=== PATIENT | female | born 1945 | race Caucasian/White ===

== ENCOUNTER → 2020-04-22 10:29 | Outpatient (CLI) | payer MEDICARE, SELFPAY ==
--- NOTE | ~2020-04-22 | MM_ITS ---
EXAMINATION: MM screening ortiz BI w sandra HISTORY: Screening mammogram TECHNIQUE: Craniocaudal and mediolateral oblique 3-D tomosynthesis images were obtained and synthetic 2-D images were generated. CAD analysis was submitted and interpreted. COMPARISON: 04/04/2018, 03/30/2017, 12/12/2015 bilateral digital screening mammogram examinations BREAST PARENCHYMAL COMPOSITION: There are scattered areas of fibroglandular density. FINDINGS: Bilateral calcifications including arterial. There is no evidence of suspicious mass, calci fication, or architectural distortion to suggest malignancy in either breast. There has been no suspi cious interval change. IMPRESSION: 1. No mammographic evidence of malignancy. 2. Recommend routine screening mammography in one year. BI-RADS Category 2: Benign finding(s). Reviewed, dictated and finalized at location A. 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
== END ==
PROVIDERS: PCP Family Medicine Adolescent Medicine; Visit Provider Family Medicine Adolescent Medicine
DX: Z12.31 Encounter for screening mammogram for malignant neoplasm of breast (principal)
CPT/HCPCS: 77063; 77067

== ENCOUNTER 2021-01-03 11:05 | Emergency (ER) | payer MEDICARE, SELFPAY ==
--- NOTE | ~2021-01-03 | XR_ITS ---
EXAMINATION: XR shoulder LT min 2V INDICATION: Severe left shoulder pain TECHNIQUE: Four views of the left shoulder are submitted. COMPARISON: 05/19/2018 FINDINGS: Normal alignment. No fracture. There is mild osteoarthritis of the acromioclavicular and gl enohumeral joints. Soft tissues are unremarkable. IMPRESSION: 1. Mild osteoarthritis. Reviewed, dictated and finalized at location A. IMPRESSION: 1. Mild osteoarthritis.
--- NOTE | ~2021-01-03 | XR_ITS ---
EXAMINATION: XR chest 2V DATE: 01/03/2021 11:52 INDICATION: Pain and weight loss TECHNIQUE: AP and lateral views of the chest are obtained. COMPARISON: 05/01/2017 FINDINGS: The lungs are free of acute opacities. There is no pleural effusion or pneumothorax. The ca rdiomediastinal silhouette is normal. There is moderate thoracic spondylosis. IMPRESSION: 1. No acute cardiopulmonary abnormality. Reviewed, dictated and finalized at location A.
[2021-01-03 11:14] VITALS: BP 101/89; PULSE 58; RESP 18; TEMP 36.6; O2SAT 97
--- NOTE | 2021-01-03 11:28 | ED.GENADULT ---
HPI - General Adult General Chief complaint: Extremity Injury, Upper <Imelda Villalta PA-C - Last Filed: 01/03/21 15:16> Stated complaint: having alot of pain, vomiting <Imelda Villalta PA-C - Last Filed: 01/03/21 15:16> Time Seen by Provider: 01/03/21 11:28 <Imelda Villalta PA-C - Last Filed: 01/03/21 15:16> Source: patient and family () <Imelda Villalta PA-C - Last Filed: 01/03/21 15:16> Mode of arrival: ambulatory <ARIELLA Koch Last Filed: 01/03/21 15:16> Limitations: no limitations <Imelda Villalta PA-C - Last Filed: 01/03/21 15:16> History of Present Illness HPI narrative: Patient is here for evaluation of left shoulder pain radiates down her left posterior ribs. She has had the pain for at least 2 months. Denies any history of trauma. She received a cortisone shot in her left shoulder on and states that the pain seems to be worse now, to the point that she vomits from the pain. She denies any shortness of breath except when the pain is really bad. She does have a history of diabetes and asthma. She also reports a 20 pound weight loss in the last 5 to 6 months. <Imelda Villalta PA-C - Last Filed: 01/03/21 15:16> Onset (ago): week(s) <Imelda Villalta PA-C - Last Filed: 01/03/21 15:16> Severity scale (1-10): 9 <ARIELLA Koch Last Filed: 01/03/21 15:16> Quality: stabbing <ARIELLA Koch Last Filed: 01/03/21 15:16> Associated symptoms: nausea/vomiting and shortness of breath <ARIELLA Koch Last Filed: 01/03/21 15:16> Treatments prior to arrival: NSAID <Imelda Villalta PA-C - Last Filed: 01/03/21 15:16> Related Data Allergies/adverse reactions: Allergies Allergy/AdvReac Type Severity Reaction Status Date / Time Quinolones Allergy Mild Hives Verified 01/03/21 11:22 levofloxacin Allergy Unknown Hives Verified 01/03/21 11:22 ofloxacin Allergy Unknown HIVES Verified 01/03/21 11:22 NSAIDS (Non-Steroidal AdvReac Unknown Gastrointestinal Verified 01/03/21 11:22 Anti-Inflamma Upset ANTI INFLAMMATORYS AdvReac Unknown HEART BURN Uncoded 01/03/21 11:22 <Imelda Villalta PA-C - Last Filed: 01/03/21 15:16> Review of Systems Review of Systems: All systems reviewed & are unremarkable except as noted in HPI and below <Imelda Villalta PA-C - Last Filed: 01/03/21 15:16> [facility] Family History Family History: Family History Sibling Hypertension Family history of malignant neoplasm of cervix Family history of malignant neoplasm of uterus Family history of throat cancer Father Hypertension Cerebrovascular accident Mother Hypertension Grandparent Family history of Alzheimer's disease Family history of pancreatic cancer <Imelda Villalta PA-C - Last Filed: 01/03/21 15:16> Social History Social History: Social History (Updated 01/03/21 @ 11:44 by Imelda Villalta PA-C) Smoking status: Never smoker Alcohol intake: never Substance use: never Living arrangements: with family <Imelda Villalta PA-C - Last Filed: 01/03/21 15:16> Exam Const: General: no acute distress and alert <Imelda Villalta PA-C - Last Filed: 01/03/21 15:16> Nutritional Appearance: thin <Imelda Villalta PA-C - Last Filed: 01/03/21 15:16> Orientation/consciousness: patient oriented x3 <Imelda Villalta PA-C - Last Filed: 01/03/21 15:16> HENMT: Head: normal to inspection <Imelda Villalta PA-C - Last Filed: 01/03/21 15:16> Eyes: Pupils: Equal, round and reactive pupils present <Imelda Villalta PA-C - Last Filed: 01/03/21 15:16> Neck: Neck: no lymphadenopathy <Imelda Villalta PA-C - Last Filed: 01/03/21 15:16> Resp: Effort & Inspection: normal respiratory effort <ARIELLA Koch Last Filed: 01/03/21 15:16> Auscultation: wheezes inspiratory wheezes and lower bilaterally <ARIELLA Koch Last Filed:
[2021-01-03] MEDS: SODIUM CHLORIDE 0.9% IV 1,000 ML 999 ML IV CONT (13:01)
[2021-01-03] MEDS: KETOROLAC 30 MG/ML VIAL (*BKC) IV PUSH (13:01)
[2021-01-03] MEDS: CYCLOBENZAPRINE HCL 10 MG TABLET PO (14:10)
--- NOTE | 2021-01-03 15:05 | PC.NURSE ---
Request to PO challenge patient per BREAKFAST HOSTESS. Pt tolerated 4 crackers and water with flexeril earlier in the day. BREAKFAST HOSTESS aware. Pt reports improvement in pain since flexeril, states pain is tolerable at this time.
[2021-01-03 15:43] VITALS: BP 108/74; PULSE 71; RESP 18; TEMP 36.8; O2SAT 95
== END 2021-01-03 15:45 | disposition home or self-care (01) ==
PROVIDERS: Emergency Provider General Practice; PCP Family Medicine Adolescent Medicine
DX: M25.512 Pain in left shoulder (principal)
CPT/HCPCS: 71046; 73030; 96361; 96374; 99284; A9270; J1885; J7030

== ENCOUNTER 2021-01-13 09:35 | Outpatient (CLI) | payer MEDICARE, SELFPAY ==
--- NOTE | ~2021-01-13 | MR_ITS ---
EXAMINATION: MR cervical spine wo con EXAM DATE: 01/13/2021 10:42 INDICATION: Cervical radiculopathy. TECHNIQUE: Multi-sequential, multiplanar MR images of the cervical spine were obtained without contra st. Axial T2, axial T2 MERGE sequence. Sagittal T1, T2, T2 fat saturation images also obtained. Th ere is no prior study for comparison. FINDINGS: There is moderate loss of the C4-5 and 5-6 disc height, mild to moderate at C6-7. The spin al cord signal intensity and intrinsic morphology is normal. Cervicomedullary junction is normal in a ppearance. There are no suspicious marrow signal abnormalities. Paraspinal soft tissue is unremarkabl e. The vertebral bodies are aligned in the AP dimension. Level by level evaluation: Study is limited due to patient motion. C2-C3: Disc does not extend beyond the endplate margin. Uncovertebral joint arthropathy: None. Facet joint arthropathy: Mild to moderate bilateral. Neural foraminal stenosis: No stenosis. Central canal stenosis: No stenosis. C3-C4: Disc does not extend beyond the endplate margin. Uncovertebral joint arthropathy: Mild bilateral. Facet joint arthropathy: Moderate bilateral. Neural foraminal stenosis: No stenosis. Central canal stenosis: No stenosis. C4-C5: There is a mild diffuse disc bulge. Uncovertebral joint arthropathy: Moderate to severe right, moderate left. Facet joint arthropathy: Moderate to severe right, moderate left. Neural foraminal stenosis: Moderate right, mild to moderate left. Central canal stenosis: Mild. C5-C6: There is a minimal diffuse disc bulge. Uncovertebral joint arthropathy: Moderate to severe bilateral. Facet joint arthropathy: Moderate bilateral. Neural foraminal stenosis: Moderate left, mild to moderate right. Central canal stenosis: No stenosis. C6-C7: There is a mild diffuse disc bulge. Uncovertebral joint arthropathy: Moderate bilateral. Facet joint arthropathy: Mild to moderate bilateral. Neural foraminal stenosis: Mild bilateral. Central canal stenosis: Mild. C7-T1: Disc does not extend beyond the endplate margin. Uncovertebral joint arthropathy: Mild bilateral. Facet joint arthropathy: Mild bilateral. Neural foraminal stenosis: No stenosis. Central canal stenosis: No stenosis. IMPRESSION: Significant mid cervical arthropathy causing stenosis as above. Reviewed, dictated and finalized at location A.
== END 2021-01-13 09:36 | disposition home or self-care (01) ==
PROVIDERS: PCP Family Medicine Adolescent Medicine; Visit Provider Family Medicine Adolescent Medicine
DX: M54.12 Radiculopathy, cervical region (principal)
CPT/HCPCS: 72141

== ENCOUNTER → 2021-09-11 12:03 | Outpatient (CLI) | payer MEDICARE, SELFPAY ==
--- NOTE | ~2021-09-11 | XR_ITS ---
XR chest 2V DATE: 09/11/2021 12:25 INDICATION: Cough TECHNIQUE: 2 views COMPARISON: 01/03/2021 2 view chest FINDINGS: There is lingular infiltrate and/atelectasis. The remaining lungs appear clear. Prominent bilateral hyperinflation and relative flattening the diaphragm and increased retrosternal a irspace, consistent with COPD. Ill-defined approximately 9 mm opacity overlies the lateral right mid to upper lung. CT thorax is rec ommended to exclude pulmonary mass lesion. Normal heart size. Aortic arch calcification. No hilar or mediastinal enlargement. There is old pulmonary granulomatous disease. Osteopenia. Minimal dextroscoliosis of the thoracic spine. IMPRESSION: Lingular infiltrate and/or atelectasis; continued radiographic follow-up is recommended t o ensure complete clearing in order to exclude any possible mass or endobronchial obstructing lesion 9 mm density overlying right upper lobe; CT thorax is recommended to exclude pulmonary mass lesion. COPD Aortic atherosclerosis Osteopenia Reviewed, dictated and finalized at location A. IMPRESSION: Lingular infiltrate and/or atelectasis; continued radiographic foll ow-up is recommended to ensure complete clearing in order to exclude any possib le mass or endobronchial obstructing lesion 9 mm density overlying right upper lobe; CT thorax is recommended to exclude pu lmonary mass lesion. COPD Aortic atherosclerosis Osteopenia
== END ==
PROVIDERS: PCP Physician Assistant; Visit Provider Physician Assistant
DX: R05.9 Cough, unspecified (principal); J44.9 Chronic obstructive pulmonary disease, unspecified; I70.0 Atherosclerosis of aorta; M85.88 Other specified disorders of bone density and structure, other site
CPT/HCPCS: 71046

== ENCOUNTER → 2021-09-22 09:07 | Outpatient (CLI) | payer MEDICARE, SELFPAY ==
--- NOTE | ~2021-09-22 | CT_ITS ---
EXAMINATION:CT diagnostic chest wo con DATE: 09/22/2021 09:30 INDICATION: Cough. Chest pain. Shortness of breath. TECHNIQUE: Computed tomography (CT) of the chest was performed without intravenous contrast. Automate d exposure control and iterative reconstruction technique were employed. The dose-length product (DLP ) was 138.84 mGy-cm. COMPARISON: Chest CT 05/07/2014, 01/03/14 FINDINGS: There is mild scarring at the lung apices. Calcified pulmonary nodules and calcified hilar and mediastinal lymph nodes are consistent with old granulomatous disease. There are scattered centri lobular and tree-in-bud opacities and small airspace opacities involving all lobes. There is bronchie ctasis in lingula. No pleural effusion. The heart size is normal. No pericardial effusion. Calcificat ions in the liver and spleen are consistent with old granulomatous disease. There is mild thoracic sp ondylosis. There is a chronic compression fracture of T8. IMPRESSION: 1. 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 Reviewed, dictated and finalized at location A. IMPRESSION: 1. 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
== END ==
PROVIDERS: PCP Family Medicine Adolescent Medicine; Visit Provider Physician Assistant
DX: R05.9 Cough, unspecified (principal); J98.4 Other disorders of lung
CPT/HCPCS: 71250

== ENCOUNTER → 2021-11-17 14:20 | Outpatient (CLI) | payer MEDICARE, SELFPAY ==
--- NOTE | ~2021-11-17 | MR_ITS ---
EXAMINATION: MR lumbar spine wo con DATE: 11/17/2021 14:50 INDICATION: Low back pain. Left-sided sciatica. TECHNIQUE: Magnetic resonance imaging (MRI) of the lumbar spine was performed without intravenous con trast. Sequences included sagittal T2-weighted FSE, sagittal T2-weighted FS FSE, sagittal T1-weighted FSE, and axial T2-weighted FSE. COMPARISON: None FINDINGS: There is 5 degrees levocurvature of thoracolumbar spine. Vertebral body heights are normal. There is mildly decreased disc height at L3-L4 and severely decreased disc height at L4-L5 and L5-S1 with endplate remodeling. The distal spinal cord signal intensity is normal. The conus medullaris is at L1. The following disc levels are specifically discussed: L1-L2: The disc does not extend beyond the endplate margin. There is mild bilateral facet joint osteo arthritis. There is no neural foraminal stenosis. There is no central canal stenosis. L2-L3: The disc does not extend beyond the endplate margin. There is severe bilateral facet joint ost eoarthritis. There is no neural foraminal stenosis. There is no central canal stenosis. L3-L4: The disc is bulging and has an annular fissure. There is moderate bilateral facet joint osteoa rthritis. There is mild bilateral neural foraminal stenosis. There is mild central canal stenosis. L4-L5: The disc is bulging and has an annular fissure. There is moderate right and mild left facet jt int osteoarthritis. There is mild right and moderate left neural foraminal stenosis. There is mild ce ntral canal stenosis. L5-S1: The disc is bulging and has an annular fissure. There is severe right and moderate left facet joint osteoarthritis. There is moderate bilateral neural foraminal stenosis. There is mild central ca nal stenosis. IMPRESSION: 1. Severe lower lumbar spondylosis. Reviewed, dictated and finalized at location A.
== END ==
PROVIDERS: PCP Family Medicine Adolescent Medicine; Visit Provider Physician Assistant
DX: M54.42 Lumbago with sciatica, left side (principal); M47.896 Other spondylosis, lumbar region
CPT/HCPCS: 72148

== ENCOUNTER 2021-12-07 08:13 | Emergency (ER) | payer MEDICARE, SELFPAY ==
--- NOTE | 2021-12-07 08:15 | ED.SKABFB ---
HPI - Skin/Abscess/Foreign Bdy General Chief complaint: Skin/Abscess/Foreign Body Stated complaint: Insect Bite Right Inner Thigh Time Seen by Provider: 12/07/21 08:35 Source: patient and RN notes reviewed Mode of arrival: ambulatory Limitations: no limitations History of Present Illness HPI narrative: 76-year-old female presents with concern for insect bite to her right thigh. She reports on Tuesday night she was bit or stung by something it was painful. She reports she had a red area. She reports she applied Benadryl cream. She reports since then the area has become more red, warm, hard, tender and burning. She denies itching. She denies fullness, swollen tongue, trouble breathing. MD complaint: insect bite/sting Related Data Home Medications Medication Instructions Recorded Confirmed fluticasone propionate 50 1 spray intranasal DAILY 04/13/21 12/07/21 mcg/actuation nasal spray,suspension (Flonase Allergy Relief) albuterol sulfate 90 mcg/actuation 2 puff inhalation Q4-5H PRN 12/07/21 12/07/21 aerosol inhaler difficulty breathing gabapentin 100 mg capsule 100 mg PO DAILY 12/07/21 12/07/21 loratadine 10 mg tablet (Claritin) 10 mg PO DAILY 12/07/21 12/07/21 metformin 500 mg tablet 500 mg PO DAILY PRN high BS 12/07/21 12/07/21 montelukast 10 mg tablet 10 mg PO DAILY 12/07/21 12/07/21 Allergies Allergy/AdvReac Type Severity Reaction Status Date / Time Quinolones Allergy Mild Hives Verified 12/07/21 08:20 levofloxacin Allergy Unknown Hives Verified 12/07/21 08:20 ofloxacin Allergy Unknown HIVES Verified 12/07/21 08:20 cyclobenzaprine AdvReac Intermediate Nausea, Verified 12/07/21 08:20 vomiting NSAIDS (Non-Steroidal AdvReac Unknown Gastrointestinal Verified 12/07/21 08:20 Anti-Inflamma Upset Review of Systems Review of Systems: CONSTITUTIONAL: Denies malaise, chills, sweats, or fever. EYES: Denies redness, or discharge. ENT: Denies rhinorrhea, congestion, swollen lips, swollen tongue CARDIOVASCULAR: Denies chest pain, palpitations, or edema. RESPIRATORY: Denies cough or dyspnea. GASTROINTESTINAL: Denies abdominal pain, nausea, vomiting SKIN: Reports warm red tender area on her right thigh MUSCULOSKELETAL: Denies joint pain or myalgia. NEUROLOGIC: Denies headache. All systems reviewed & are unremarkable except as noted in HPI and below PMFSH Surgical History Surgical History History of hysterectomy Vaginal, 1973 Family History Family History Sibling Hypertension Family history of malignant neoplasm of cervix Family history of malignant neoplasm of uterus Family history of throat cancer Ovarian cancer Father Hypertension Cerebrovascular accident Acute myocardial infarction Mother Hypertension Osteoporosis Grandparent Family history of Alzheimer's disease Family history of pancreatic cancer Social History Social History Smoking status: Never smoker Second hand tobacco smoke exposure: No Alcohol intake: never Substance use: never Substance use type: does not use Gender identity (if verbalized by the patient): Female Sexual Orientation (if Verbalized by the Patient): Straight or Heterosexual Spiritual care concerns: No Agree to blood products: Yes Comments At time of signature, agree with nursing past medical, surgical, social and family history. There is no relevant family history pertinent to the presenting complaint Exam Narrative: GENERAL: Well-appearing, well-nourished, and in no acute distress. HEAD: Normocephalic, atraumatic. EYES: PERRLA, conjunctivae clear ENT: Mucous membranes moist. NECK: Supple. No lymphadenopathy CHEST: Clear to auscultation. No respiratory distress. HEART: Regular rate and rhythm. SKIN: Warm, dry. Approximately 10 cm area in diameter of erythema, warmth, ind
[2021-12-07 08:23] VITALS: BP 129/79; PULSE 100; RESP 18; TEMP 36.7; O2SAT 100
== END 2021-12-07 08:50 | disposition home or self-care (01) ==
PROVIDERS: Emergency Provider Nurse Practitioner; PCP Family Medicine Adolescent Medicine
DX: L03.115 Cellulitis of right lower limb (principal)
CPT/HCPCS: 99213; G0463

== ENCOUNTER 2022-03-01 10:36 | Outpatient (CLI) | payer MEDICARE, SELFPAY ==
--- NOTE | 2022-03-01 12:40 | WPDNEUROLOGY ---
Neurology EEG Report General Information Date of Study: 03/01/22 TEST Routine EEG DIAGNOSIS Unspecified convulsions CONDITION OF RECORDING Awake, drowsy EEG NUMBER [id number] CLINICAL HISTORY Patients states about two weeks ago she had surgery and while coming out of anesthesia, she had a seizure. She has no prior history of seizures. EEG DESCRIPTION During the awake state with eyes closed the background consists of 8 Hz posterior dominant rhythm which attenuates appropriately with eye opening. The recording is continuous. There is a well developed anterior-posterior gradient. No significant asymmetries of background activities are noted. With drowsiness there is was waxing and waning of the dominant rhythm with eventual replacement by a mixture of beta, alpha, and theta activity. Patient did not enter stage II sleep. There are no epileptiform discharges or seizures during this recording. Photic stimulation did not elicit any abnormal photoparoxysmal response. IMPRESSION This is a normal routine EEG recorded in awake and drowsy states. There are no electrographic seizures identified, nor are there any epileptiform discharges. Please note that a normal EEG cannot exclude a seizure disorder. Clinical correlation is recommended.
== END 2022-03-01 10:37 | disposition home or self-care (01) ==
PROVIDERS: PCP Family Medicine Adolescent Medicine; Visit Provider Family Medicine Adolescent Medicine
DX: R56.9 Unspecified convulsions (principal)
CPT/HCPCS: 95816

== ENCOUNTER 2022-04-21 08:17 | Emergency (ER) | payer MEDICARE, SELFPAY ==
--- NOTE | ~2022-04-21 | XR_ITS ---
EXAMINATION: XR chest 2V DATE: 04/21/2022 08:47 INDICATION: Productive cough and wheezing TECHNIQUE: PA and lateral views of the chest are obtained. COMPARISON: 09/11/2021 FINDINGS: The lungs are free of acute opacities. No pleural effusion or pneumothorax. The cardiomedia stinal silhouette is normal. There is mild thoracic spondylosis. IMPRESSION: 1. No acute cardiopulmonary abnormality. Reviewed, dictated and finalized at location B. 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
--- NOTE | 2022-04-21 08:20 | ED.URI ---
HPI - URI/Sore Throat General Chief Complaint: Upper Respiratory Infection Stated Complaint: cold sx Time Seen by Provider: 04/21/22 08:20 Source: patient Mode of arrival: ambulatory Limitations: no limitations History of Present Illness HPI Narrative: Jamee is a 76-year-old female patient presenting to clinic today with complaints of runny nose, productive cough-green/yellow phlegm, chills, and increased shortness of breath x2 days. She reports has a history of asthma and often her asthma will flare with an upper respiratory infection. Medical history is positive for asthma-moderate/persistent, pulmonary nodules, and emphysema. Has had pneumonia 7 times in her adult life. Has been using her inhalers/ routine medications without much relief. MD elicited complaint: sore throat and nasal congestion Related Data Home Medications Medication Instructions Recorded Confirmed fluticasone propionate 50 1 spray intranasal DAILY 04/13/21 04/21/22 mcg/actuation nasal spray,suspension (Flonase Allergy Relief) albuterol sulfate 90 mcg/actuation 2 puff inhalation Q4-5H PRN 12/07/21 04/21/22 aerosol inhaler difficulty breathing loratadine 10 mg tablet (Claritin) 10 mg PO DAILY 12/07/21 04/21/22 metformin 500 mg tablet 500 mg PO DAILY PRN high BS 12/07/21 04/21/22 montelukast 10 mg tablet 10 mg PO DAILY 12/07/21 04/21/22 acetaminophen 325 mg tablet 325 mg PO Q6H 02/24/22 04/21/22 (Tylenol) ascorbic acid (vitamin C) 500 mg 250 mg PO DAILY 02/24/22 04/21/22 tablet aspirin 81 mg tablet,delayed 81 mg PO DAILY 02/24/22 04/21/22 release (Adult Aspirin Regimen) atorvastatin 20 mg tablet 20 mg PO DAILY 02/24/22 04/21/22 cholecalciferol (vitamin D3) 50 50 mcg PO DAILY 02/24/22 04/21/22 mcg (2,000 unit) capsule meclizine 25 mg tablet (Dramamine 25 mg PO QID 02/24/22 04/21/22 (meclizine)) multivitamin-ferrous 1 tablet PO DAILY 02/24/22 04/21/22 fumarate-folic acid 18 mg-400 mcg tablet (Centrum Women) pimecrolimus 1 % topical cream 1 applic topical BID 02/24/22 02 Allergies Allergy/AdvReac Type Severity Reaction Status Date / Time Quinolones Allergy Mild Hives Verified 04/21/22 08:23 levofloxacin Allergy Unknown Hives Verified 04/21/22 08:23 ofloxacin Allergy Unknown HIVES Verified 04/21/22 08:23 cyclobenzaprine AdvReac Intermediate Nausea, Verified 04/21/22 08:23 vomiting NSAIDS (Non-Steroidal AdvReac Unknown Gastrointestinal Verified 04/21/22 08:23 Anti-Inflamma Upset Review of Systems Review of Systems: Pertinent positives per HPI. Patient denies any fever, chills, rash, headache, visual changes, dizziness, chest pain, palpitations, nausea, vomiting, diarrhea, constipation, abdominal pain, or any urinary issues. [facility] Surgical History Surgical History History of hysterectomy Vaginal, 1973 Family History Family History Sibling Hypertension Family history of malignant neoplasm of cervix Family history of malignant neoplasm of uterus Family history of throat cancer Ovarian cancer Father Hypertension Cerebrovascular accident Acute myocardial infarction Mother Hypertension Osteoporosis Grandparent Family history of Alzheimer's disease Family history of pancreatic cancer Social History Social History Smoking status: Never smoker Second hand tobacco smoke exposure: No Alcohol intake: never Substance use: never Substance use type: does not use Living arrangements: with family Occupation/Education: retired Gender identity (if verbalized by the patient): Female Sexual Orientation (if Verbalized by the Patient): Straight or Heterosexual Spiritual care concerns: No Agree to blood products: Yes Comments At the time of my signature, I reviewed and agree with the nursing past med
[2022-04-21 08:23] VITALS: BP 129/71; PULSE 103; RESP 16; TEMP 36.3; O2SAT 97
== END 2022-04-21 09:07 | disposition home or self-care (01) ==
PROVIDERS: Emergency Provider Nurse Practitioner Family; PCP Family Medicine Adolescent Medicine
DX: J06.9 Acute upper respiratory infection, unspecified (principal); J45.41 Moderate persistent asthma with (acute) exacerbation; N18.31 Chronic kidney disease, stage 3a; E11.22 Type 2 diabetes mellitus with diabetic chronic kidney disease; Z79.4 Long term (current) use of insulin; Z79.82 Long term (current) use of aspirin; Z20.822 Contact with and (suspected) exposure to COVID-19
CPT/HCPCS: 71046; 87426; 87804; 99213; C9803; G0463

== ENCOUNTER 2022-06-24 14:13 | Emergency (ER) | payer MEDICARE, SELFPAY ==
--- NOTE | ~2022-06-24 | XR_ITS ---
XR chest 2V 06/24/2022 14:46 Indication: Cough and wheezing Procedure: 2 view chest Comparison: Comparison to multiple prior studies sequentially, with oldest reviewed study dated 2017 Findings: There is a 1.3 cm right upper lobe nodule. Heart size normal. There are calcified granuloma s in the mid and lower lungs. No focal pneumonia, edema, pleural effusion or pneumothorax. Impression: 1: No acute cardiopulmonary disease. 2: Right upper lobe nodule measuring 1.3 cm. Follow-up CT chest recommended to exclude parenchymal no dule. Reviewed, dictated and finalized at location L. Impression: 1: No acute cardiopulmonary disease. 2: Right upper lobe nodule measuring 1.3 cm. Follow-up CT chest recommended to exclude parenchymal nodule.
[2022-06-24 14:27] VITALS: BP 131/52; PULSE 62; RESP 24; TEMP 39.2; O2SAT 93
--- NOTE | 2022-06-24 14:37 | ED.SOB ---
HPI - SOB/Dyspnea General Chief Complaint: Chest Pain Stated Complaint: cough Time Seen by Provider: 06/24/22 14:25 Source: patient Mode of arrival: ambulatory Limitations: no limitations History of Present Illness HPI Narrative: Patient is a 76-year-old female that presents with increased sinus congestion, cough, left rib pain for 3 days. Has a history of COPD, asthma, lung nodules. 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 Called pulmonology today and they were unable to see her. 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 Per patient she has CTs scheduled for October. patient febrile but has not taken anything for fever. Per patient was afebrile this morning. patient denies using rescue inhaler for symptoms. Reports productive cough in the mornings and non productive cough the rest of the day. Related Data Home Medications Medication Instructions Recorded Confirmed fluticasone propionate 50 1 spray intranasal DAILY 04/13/21 05/31/22 mcg/actuation nasal spray,suspension (Flonase Allergy Relief) albuterol sulfate 90 mcg/actuation 2 puff inhalation Q4-5H PRN 12/07/21 05/31/22 aerosol inhaler difficulty breathing loratadine 10 mg tablet (Claritin) 10 mg PO DAILY 12/07/21 05/31/22 montelukast 10 mg tablet 10 mg PO DAILY 12/07/21 05/31/22 acetaminophen 325 mg tablet 325 mg PO Q6H 02/24/22 05/31/22 (Tylenol) ascorbic acid (vitamin C) 500 mg 250 mg PO DAILY 02/24/22 05/31/22 tablet aspirin 81 mg tablet,delayed 81 mg PO DAILY 02/24/22 05/31/22 release (Adult Aspirin Regimen) atorvastatin 20 mg tablet 20 mg PO DAILY 02/24/22 05/31/22 cholecalciferol (vitamin D3) 50 50 mcg PO DAILY 02/24/22 05/31/22 mcg (2,000 unit) capsule meclizine 25 mg tablet (Dramamine 25 mg PO QID 02/24/22 05/31/22 (meclizine)) multivitamin-ferrous 1 tablet PO DAILY 02/24/22 05/31/22 fumarate-folic acid 18 mg-400 mcg tablet (Centrum Women) pimecrolimus 1 % topical cream 1 applic topical BID 02/24/22 05/31/22 Allergies Allergy/AdvReac Type Severity Reaction Status Date / Time Quinolones Allergy Mild Hives Verified 05/31/22 09:35 levofloxacin Allergy Unknown Hives Verified 05/31/22 09:35 ofloxacin Allergy Unknown HIVES Verified 05/31/22 09:35 cyclobenzaprine AdvReac Intermediate Nausea, Verified 05/31/22 09:35 vomiting NSAIDS (Non-Steroidal AdvReac Unknown Gastrointestinal Verified 05/31/22 09:35 Anti-Inflamma Upset tramadol AdvReac Mild Dizziness Uncoded 05/31/22 09:35 Review of Systems Review of Systems: All systems reviewed & are unremarkable except as noted in HPI and below Constitutional: Constitutional: Denies body ache(s), Reports fever(s), Denies headache(s), Denies malaise and Denies weakness Eyes: Eyes: Denies loss of vision ENT: Denies otalgia, Denies headache(s), Reports nasal congestion, Reports nasal discharge, Denies sinus pain and Denies sore throat Cardiovascular: Cardiovascular: Denies chest pain, Denies irregular heart rhythm and Denies dyspnea Respiratory: Respiratory: Reports cough, Reports pain on inspiration, Reports pain with cough and Denies dyspnea Gastrointestinal: Gastrointestinal: Denies abdominal pain, Denies melena, Denies hematochezia, Denies diarrhea, Denies nausea and Denies vomiting Musculoskeletal: Musculoskeletal: Denies back pain, Denies myalgias and Denies arthralgias Integumentary/Breasts: Skin/Breast: Denies pruritus and Denies rash Neurologic: Denies headache(s), Denies loss of vision and Denies weakness Psychiatric: Psychiatric: Reports no additional psychiatric complaints [facility] Surgical History Surgical History History of hysterectomy Vaginal, 1972 Family History Family History Sibling Hypertension Family history of malignant neoplasm of cervix Family history of malignant neoplasm of uterus Family history o
[2022-06-24 15:02] VITALS: TEMP 39.2
[2022-06-24] MEDS: ACETAMINOPHEN 500 MG TABLET 1000 MG PO (15:02)
[2022-06-24 16:11] VITALS: PULSE 65; RESP 18; TEMP 37.8; O2SAT 93
--- NOTE | 2022-06-24 16:12 | PC.NURSE ---
Provider spoke with pulmonary office. Pt and instructed to go to ED if not improving tonight or tomorrow.
== END 2022-06-24 16:20 | disposition home or self-care (01) ==
PROVIDERS: Emergency Provider Nurse Practitioner Family; PCP Family Medicine Adolescent Medicine
DX: J32.9 Chronic sinusitis, unspecified (principal); Z20.822 Contact with and (suspected) exposure to COVID-19; Z79.82 Long term (current) use of aspirin
CPT/HCPCS: 71046; 87426; 87804; 99213; A9270; C9803; G0463

== ENCOUNTER 2022-07-12 07:39 | Outpatient (CLI) | payer MEDICARE, SELFPAY ==
--- NOTE | ~2022-07-12 | CT_ITS ---
EXAMINATION: CT sinus wo con DATE: 07/12/2022 07:59 INDICATION: Chronic sinusitis. TECHNIQUE: Computed tomography (CT) of the paranasal sinuses was performed without intravenous contra st. Iterative reconstruction technique was employed. The dose-length product was 295.03 mGy-cm. COMPARISON: Head CT 05/01/2017 FINDINGS: The frontal sinuses are clear. There is mild mucosal thickening in the ethmoid and maxillar y sinuses. The sphenoid sinuses are clear. There is leftward deviation of the nasal septum. There is jean paul bullosa involving the bilateral middle turbinates. The ostiomeatal units are patent. There are likely changes of ocular lens replacement surgeries. There is hyperdense material in the left ocular globe, which is likely surgical change. IMPRESSION: 1. Mild mucosal thickening in the paranasal sinuses. 2. Leftward deviation of the nasal septum. Reviewed, dictated and finalized at location A.
== END 2022-07-12 07:40 | disposition home or self-care (01) ==
PROVIDERS: PCP Family Medicine Adolescent Medicine; Visit Provider Otolaryngology
DX: J32.9 Chronic sinusitis, unspecified (principal); J34.2 Deviated nasal septum
CPT/HCPCS: 70486

== ENCOUNTER → 2022-09-07 11:23 | Outpatient (CLI) | payer MEDICARE, SELFPAY ==
--- NOTE | ~2022-09-07 | CT_ITS ---
Non-contrast CT scan of the Abdomen and Pelvis Clinical indication: Abdominal pain Technique: 2.5 mm axial scans were obtained through the abdomen and pelvis without intravenous or or al contrast. Dose reduction technique was used on this scan by utilizing automated exposure control a nd iterative reconstruction technique. The dose-length product (DLP) was 179.66 mGy-cm. Findings: Images through the lung bases reveal patchy consolidation involving the lingula, right mid dle lobe, right lower lobe, and medial left lung base.. There is no evidence of renal or ureteral calculi. The kidneys and the ureters are nondilated. Calcified splenic and hepatic granulomas are present. The pancreas, gallbladder, and adrenals appear normal. There is no aortic aneurysm. There is no evidence of bowel obstruction. There are multiple punctate scattered very high attenuatio n radiodensities in the large bowel. Images through the pelvis were performed. There is no evidence of ascites or lymphadenopathy. Urinary bladder unremarkable. No pelvic mass identified. No ascites. Impression: Patchy bibasilar consolidation, as detailed above, suspicious for pneumonia, most prominent at the me dial left lower lobe. Multiple scattered punctate very high attenuation radiodensities in the large bowel. Correlate for pi ca or other atypical or foreign body ingestion. Reviewed, dictated and finalized at location . Impression: Patchy bibasilar consolidation, as detailed above, suspicious for pneumonia, mo st prominent at the medial left lower lobe. Multiple scattered punctate very high attenuation radiodensities in the large b owel. Correlate for pica or other atypical or foreign body ingestion.
== END ==
PROVIDERS: PCP Family Medicine Adolescent Medicine; Visit Provider Nurse Practitioner Family
DX: R10.9 Unspecified abdominal pain (principal); R31.9 Hematuria, unspecified; R91.8 Other nonspecific abnormal finding of lung field
CPT/HCPCS: 74176

== ENCOUNTER → 2023-02-25 12:23 | Outpatient (CLI) | payer MEDICARE, SELFPAY ==
--- NOTE | ~2023-02-25 | DEXA_ITS ---
Bone Density Report Name: DEXTER JORDAN Age: 77 Sex: Female Ethnicity: White Date of : 1945 Indication: osteopenia; parental hip fracture; height loss; asthma or emphysema; hysterectomy; postmenopausal Referring Provider: YEN RIVAS Study: Bone densitometry was performed. Exam Date: February 25, 2023 Accession number: [id number] Bone Density: Region BMD T-score Z-score Classification AP Spine (L1-L4) 0.800 -2.2 0.4 Osteopenia Femoral Neck (Left) 0.503 -3.1 -0.8 Osteoporosis Total Hip (Left) 0.690 -2.1 0.0 Osteopenia Femoral Neck (Right) 0.513 -3.0 -0.7 Osteoporosis Total Hip (Right) 0.776 -1.4 0.7 Osteopenia Total Hip Mean 0.733 -1.8 0.4 Osteopenia World Health Organization criteria for BMD impression classify patients as: Normal (T-score at or above -1.0), Osteopenia (T-score between -1.0 and -2.5), or Osteoporosis (T-score at or below -2.5). 10-year Fracture Risk: FRAX not reported because: Some T-score for Spine Total or Hip Total or Femoral Neck at or below -2.5 Previous Exams: Region Exam Age BMD T-score BMD Change BMD Change Date g/cm2 vs Baseline vs Previous AP Spine(L1-L4) 02/25/2023 77 0.800 -2.2 -0.033* -0.051* 11/20/2018 73 0.851 -1.8 0.019 0.007 05/18/2016 70 0.845 -1.8 0.012 0.033* 03/13/2013 67 0.812 -2.1 -0.021 0.052* 02/15/2011 65 0.759 -2.6 -0.073* -0.073* 05/05/2005 59 0.833 -1.9 Total Hip(Left) 02/25/2023 77 0.690 -2.1 -0.086* -0.089* 11/20/2018 73 0.778 -1.3 0.002 0.020 05/18/2016 70 0.758 -1.5 -0.018 0.054* 03/13/2013 67 0.704 -2.0 -0.072* 0.077* 02/15/2011 65 0.627 -2.6 -0.149* -0.149* 05/05/2005 59 0.776 -1.4 Total Hip(Right) 02/25/2023 77 0.776 -1.4 -0.054* -0.040* 11/20/2018 73 0.816 -1.0 -0.015 0.020 05/18/2016 70 0.796 -1.2 -0.034* 0.070* 03/13/2013 67 0.726 -1.8 -0.105* 0.067* 02/15/2011 65 0.659 -2.3 -0.172* -0.172* 05/05/2005 59 0.831 -0.9 *Denotes significance at 95% confidence level, LSC for AP Spine = 0.022 g/cm2, LSC for Total Hip = 0.027 g/cm2 Clinical Information Provided by Patient: Parent has had a hip fracture Has used the following medications: Vitamin D, Calcium, MTV Has the following medical conditions: Asthma
== END ==
PROVIDERS: PCP Nurse Practitioner Family; Visit Provider Nurse Practitioner Family
DX: M81.0 Age-related osteoporosis without current pathological fracture (principal); M85.88 Other specified disorders of bone density and structure, other site; M85.852 Other specified disorders of bone density and structure, left thigh; M85.851 Other specified disorders of bone density and structure, right thigh
CPT/HCPCS: 77080

== ENCOUNTER 2024-10-18 09:11 | Emergency (ER) | payer MEDICARE, SELFPAY ==
--- NOTE | 2024-10-18 09:19 | ED.FEMALEGU ---
HPI - Female Genitourinary General Chief complaint: Urogenital-Female Stated complaint: UTI Time Seen by Provider: 10/18/24 09:16 Source: patient Mode of arrival: ambulatory Limitations: no limitations History of Present Illness HPI Narrative: Patient is an 79-year-old female who presents with 3 days of frequent urination, burning, bladder discomfort and low back pain. Has had some chills but no fever, nausea, vomiting, diarrhea. No history of kidney stones. Does report history of UTI. MD elicited complaint: dysuria Related Data Home Medications ?Medication ?Instructions ?Recorded ?Confirmed ?Last Taken ?Type fluticasone propionate 50 1 spray intranasal DAILY 04/13/21 05/21/24 Unknown History mcg/actuation nasal spray,suspension (Flonase Allergy Relief) albuterol sulfate 90 mcg/actuation 2 puff inhalation Q4-5H PRN 12/07/21 05/21/24 Unknown History aerosol inhaler difficulty breathing loratadine 10 mg tablet (Claritin) 10 mg PO DAILY 12/07/21 05/21/24 Unknown History Allergies Allergy/AdvReac Type Severity Reaction Status Date / Time Quinolones Allergy Mild Hives Verified 10/18/24 09:24 levofloxacin Allergy Unknown Hives Verified 10/18/24 09:24 ofloxacin Allergy Unknown HIVES Verified 10/18/24 09:24 cyclobenzaprine AdvReac Intermediate Nausea, Verified 10/18/24 09:24 vomiting NSAIDS (Non-Steroidal AdvReac Unknown Gastrointestinal Verified 10/18/24 09:24 Anti-Inflamma Upset tramadol AdvReac Mild Dizziness Uncoded 10/18/24 09:24 Review of Systems Review of Systems: All systems reviewed & are unremarkable except as noted in HPI and below Constitutional: Constitutional: Denies chills, Denies fever(s), Denies headache(s), Denies malaise and Denies weakness Eyes: Eyes: Denies change in vision, Denies eye discharge and Denies irritation ENT: Denies otalgia, Denies headache(s), Denies nasal congestion, Denies nasal discharge, Denies sinus pain and Denies sore throat Cardiovascular: Cardiovascular: Denies chest pain, Denies edema, Denies palpitations and Denies dyspnea Respiratory: Respiratory: Denies cough and Denies dyspnea Gastrointestinal: Gastrointestinal: Denies abdominal pain, Denies diarrhea, Denies nausea and Denies vomiting Genitourinary: Genitourinary: Denies hematuria, Reports nocturia, Reports dysuria, Denies flank pain and Reports urinary urgency Musculoskeletal: Musculoskeletal: Denies back pain and Denies numbness Integumentary/Breasts: Skin/Breast: Denies pruritus and Denies rash Neurologic: Denies headache(s), Denies numbness and Denies weakness Psychiatric: Psychiatric: Reports no additional psychiatric complaints Endocrine: Endocrine: Denies palpitations PMFSH Past Medical History Medical History Deviated septum Surgical History Surgical History History of hysterectomy Vaginal, 1973 Family History Family History Sibling Hypertension Family history of malignant neoplasm of cervix Family history of malignant neoplasm of uterus Family history of throat cancer Ovarian cancer Father Hypertension Cerebrovascular accident Acute myocardial infarction Mother Hypertension Osteoporosis Grandparent Family history of Alzheimer's disease Family history of pancreatic cancer Social History Social History Social History: Caffeine-occasionally Smoking status: Never smoker Second hand tobacco smoke exposure: No Alcohol intake: never Substance use: never Substance use type: does not use Lack of Transportation: No Lack of Food: Never True Current Housing: I Have Housing Concerned About Future Housing: No Difficulty Paying Gas/Electric Bills: YES Difficulty Paying for Meds: YES Currently Unemployed: No Education: High School Diploma/GED Difficulty w/ Childcare or Family Care: No Living arrangements: with family Occupation/Education: retired Gender identity (if verbalized by the patient): Female Sexual Orientation (if Verbalized by the Patient): Straight or Heterosexual Spiritual care concerns: No Agree to blood products: Yes Comments At time of signature, agree with nursing past medical, surgical, social and family history. There is no relevant family history pertinent to the presenting complaint. Exam Const: General: cooperative, healthy appearing, comfortable, no acute distress and well nourished Nutritional Appearance: well nourished Orientation/consciousness: patient oriented x3 HENMT: Head: normocephalic and atraumatic Ears: external ears normal Face/Nose/Sinus: Normal external nose present, Normal nares present and normal facial exam Face and sinus: normal facial exam Eyes: General: appearance normal, both eyes and all related structures Pupils: Equal, round and reactive pupils present EOM: EOMs intact bilaterally Neck: Neck: normal visual inspection, full ROM and supple Chest: Chest palpation & inspection: normal inspection of the chest Resp: Effort & Inspection: normal respiratory effort and able to speak in complete sentences Cardio: Rate: regular rate Rhythm: regular rhythm GI: Inspection: normal to inspection GI Palp: No abdominal tenderness and Yes Soft to palpation : General: Yes no CVA tenderness Back/Spine/Pelvis: Back: no CVA tenderness Skin: General skin exam: normal color and no rashes or lesions noted Neuro: General: patient oriented x3 and moves all extremities Cranial nerves: Yes Equal, round and reactive pupils present Extrem: General: normal to inspection and full ROM Psych: Appearance: grossly normal and well kempt Course Course Emergency Course: Patient is aware of diagnosis, understands and agrees to treatment plan. Anticipatory guidance given. Patient agrees to follow-up as directed and is aware of reasons to seek care at the emergency department. Portions of this record may have been created with voice recognition software Level of Care: Express Care Visit Vital Signs Vital signs: Vital Signs Temperature 36.8 C 10/18/24 09:23 Pulse Rate 85 10/18/24 09:23 Respiratory Rate 16 10/18/24 09:23 Blood Pressure 110/65 10/18/24 09:23 Pulse Oximetry 93 10/18/24 09:23 Oxygen Delivery Room Air 10/18/24 09:23 Temperature 36.8 C 10/18/24 09:23 Pulse Rate 85 10/18/24 09:23 Respiratory Rate 16 10/18/24 09:23 Blood Pressure 110/65 10/18/24 09:23 Pulse Oximetry 93 10/18/24 09:23 Oxygen Delivery Room Air 10/18/24 09:23 Reviewed MDM - Female Genitourinary MDM Narrative Medical decision making narrative: Exam findings and UA show probable UTI; patient is non-toxic appearing and is in no distress. No CMT, adnexal tenderness, or evidence of pelvic etiology. Patient is appropriate for outpatient treatment and follow-up. Differential Diagnosis Differential diagnosis: Likely urinary tract infection, bacterial vaginosis, trichomoniasis, cervicitis, vaginitis and cystitis Medical Records Attestation: I reviewed the patient's medical records. Lab Data Attestation: I reviewed the patient's lab results. Labs: Lab Results 10/18/24 Range/Units 09:31 POC Urine Color Yellow POC Urine Clarity Clear POC Urine pH 7.0 POC Ur Specif Bagley 1.015 POC Urine Protein Negative (Negative) POC Ur Glucose (UA) Negative (Negative) POC Urine Ketones Negative (Negative) POC Urine Blood Trace (Negative) POC Urine Nitrite Negative (Negative) POC Urine Bilirubin Negative (Negative) POC Urine Urobilinogen 0.2 POC U Leukocyte Esteras 1+ (Negative) Discharge Plan Discharge Clinical Impression: UTI (urinary tract infection) Qualifiers: Urinary tract infection type: acute cystitis Hematuria presence: without hematuria Qualified Code(s): N30.00 - Acute cystitis without hematuria Patient Disposition: Home Condition: Stable Instructions: Urinary Tract Infection in Older Adults (ED) Additional Instructions: We will send a urine culture to the lab, based on your symptoms and urine dip we will start treatment today. If culture comes back and bacteria is not susceptible to antibiotic, your prescription may change. Your symptoms should improve within a day of starting antibiotics, but you should finish all the antibiotic pills you get. Otherwise your infection might come back Continue with increased water intake. Take Tylenol or ibuprofen as needed for pain or fever. Follow-up with primary care provider for urine recheck or see ER visit if condition worsens with high fever, nausea, vomiting, severe back pain Patient Language: Occitan Prescriptions: New nitrofurantoin monohyd/m-cryst 100 mg capsule 100 mg PO Q12H 5 Days Qty: 10 0RF Rx Instructions: must administer with a meal/food No Action albuterol sulfate 90 mcg/actuation HFA aerosol inhaler 2 puff INHALATION Q4-5H PRN (Reason: difficulty breathing) loratadine [Claritin] 10 mg Tablet 10 mg PO DAILY fluticasone propionate [Flonase Allergy Relief] 50 mcg/actuation spray,suspension 1 spray intranasal DAILY Rx Instructions: administer into each nostril mupirocin 2 % ointment 1 applic topical TID Qty: 22 3RF Rx Instructions: Intranasal Prolia 60 mg/mL syringe See Rx Instructions .ROUTE .COMPLEX Qty: 1 1RF Dose Instruction: INJECT SOLUTION EVERY 6 MONTHS, TO BE INJECTED BY PHYSICIAN MONTHLY Rx Instructions: INJECT SOLUTION EVERY 6 MONTHS, TO BE INJECTED BY PHYSICIAN MONTHLY budesonide-formoterol 160-4.5 mcg/actuation HFA aerosol inhaler 2 puff inhalation Q12H Qty: 10.2 3RF (DME) lancets [OneTouch Delica Lancets] 33 [place] [facility] [place] Rx Instructions .Route Qty: 100 3RF Rx Instructions: use to check blood sugar daily meclizine 25 mg tablet 25 mg PO QID PRN (Reason: dizziness) Qty: 40 1RF metformin 500 mg tablet extended release 24 hr 500 mg PO DAILY Qty: 90 1RF ondansetron 4 mg tablet,disintegrating 4 mg PO Q6H PRN (Reason: nausea and vomiting) Qty: 30 1RF (DME) blood-glucose meter [OneTouch Ultra2 Meter] [facility] [place] See Rx Instructions .Route Qty: 1 0RF Rx Instructions: Use to test blood glucose once daily (DME) OneTouch Ultra Test Strip See Rx Instructions .ROUTE .COMPLEX Qty: 100 1RF Dose Instruction: USE 1 STRIP TO CHECK GLUCOSE ONCE DAILY Rx Instructions: USE 1 STRIP TO CHECK GLUCOSE ONCE DAILY (DME) lancets [facility] [place] See Rx Instructions .Route Qty: 100 2RF Rx Instructions: Use 1 daily to test blood glucose Follow-up/Referrals: Izabela Milligan DO [Primary Care Provider] - 3 Days Time of Disposition: 09:44
[2024-10-18 09:23] VITALS: BP 110/65; PULSE 85; RESP 16; TEMP 36.8; O2SAT 93
[2024-10-18 09:38] LABS: EDUAAPPEAR Clear; EDUABILI Negative (Negative); EDUABLOOD Trace (Negative); EDUACOLOR1 Yellow; EDUAGLUCOSE Negative (Negative); EDUAKETONE Negative (Negative); EDUALEUKO 1+ (Negative); EDUANITRATE Negative (Negative); EDUAPH 7.0; EDUAPROTEIN Negative (Negative); EDUASPGRAVITY 1.015; EDUAUROBILI 0.2
== END 2024-10-18 09:55 | disposition home or self-care (01) ==
PROVIDERS: Emergency Provider Nurse Practitioner Family; PCP Family Medicine
DX: N30.00 Acute cystitis without hematuria (principal)
CPT/HCPCS: 81003; 87086; 99213; G0463